=== PATIENT | male | born 1945 | race Two or more races ===

== ENCOUNTER 2018-11-22 14:42 | Emergency (ER) | payer SELFPAY ==
[~2018-11-22] VITALS: Ht 172.7 cm; Wt 90.0 kg
[2018-11-22] MEDS ORDERED: TETANUS, DIPHTHERIA, PERTUSSIS VAC/PF 0.5ML (>7YR OLD) IM ONE (20:15)
[2018-11-22 21:04] VITALS: BP 98/59
== END 2018-11-22 21:05 | disposition home or self-care (01) ==
LOC: ER 14:42
DX: S00.91XA Abrasion of unspecified part of head, initial encounter (principal); R40.4 Transient alteration of awareness; F10.129 Alcohol abuse with intoxication, unspecified; X58.XXXA Exposure to other specified factors, initial encounter; Y93.89 Activity, other specified; Y92.89 Other specified places as the place of occurrence of the external cause; Y99.8 Other external cause status; Y90.8 Blood alcohol level of 240 mg/100 ml or more
CPT/HCPCS: 36415; 80320; 90471; 90715; 99284; G0480